=== PATIENT | male | born 1940 | race Hispanic/Latino ===

== ENCOUNTER 2017-02-27 07:39 | Day surgery (SDC) | payer MEDICARE, BC ==
[2017-02-27] MEDS ORDERED: Lidocaine 2% Jelly (Uro-Jet) ONE (10:05)
[2017-02-27] MEDS ORDERED: Iohexol 240 (50 ml) ONE (10:05)
[2017-02-27] MEDS ORDERED: Propofol 10 mg/ml Inj (20 ML) ONE (10:45)
[2017-02-27] MEDS ORDERED: cefTRIAXone (Rocephin) 1 gm Inj ONE (10:46)
[2017-02-27] MEDS ORDERED: Midazolam 2 MG/2 ML VIAL ONE (10:46)
[2017-02-27] MEDS ORDERED: Lactated Ringer's 1,000 ML IV SCH (11:30)
[2017-02-27 12:31] VITALS: RESP 18; TEMP 97.4
[2017-02-27 12:34] VITALS: BMI 24.4
[2017-02-27 13:20] VITALS: BP 155/69; PULSE 64; O2SAT 95
--- NOTE | 2017-02-27 13:33 | OP ---
PROCEDURE DATE: 02/27/2017 PREOPERATIVE DIAGNOSES: Bladder cancer history, hematuria. POSTOPERATIVE DIAGNOSIS: Bladder cancer. PROCEDURES: A cystoscopy, excision and fulguration of bladder tumor and bilateral retrograde pyelogr ams. ATTENDING SURGEON: Gab Agustin MD ANESTHESIA: General. SPECIMENS: Bladder tumor pieces were sent to pathology. DRAINS: There were none. COMPLICATIONS: There were none. OPERATIVE FINDINGS: After informed consent was obtained, the patient was taken to the operating room and placed on the operating table. Anesthesia was administered. The patient was then placed in the dorsal lithotomy position and prepped and draped in the usual sterile fashion. A 21-Hebrew cystosco pe was placed in the patient's urethra and advanced proximally under direct vision until the bladder was entered. A full survey inspection of bladder was then performed, which revealed a small papillar y bladder tumor on the posterior wall. There was some patchy erythema. There were multiple prior sc ars on the bladder from prior resection sites. Both ureteral orifices were visualized. The left was somewhat abnormal, as it had been previously resected, but it was open. The right appeared within n ormal limits. There was no tumor coming from either orifice or adjacent to either orifice. There wa s some papillary tumor located at the bladder neck region at the 4-5 o'clock position, extending into the prostatic urethra. 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 There wa s some nodular prostatic regrowth as well. At this point, a cold cup forceps was passed. The tumor noted at the bladder neck in the 4-5 o'clock position was then resected using the cold cup forceps. The pieces of tumor were sent to pathology as specimen. After the tumor was resected, a Bugbee elect rode was passed. The resection site was completely fulgurated along with any surrounding area of nor mal mucosa. The small papillary tumor on the posterior wall was also fulgurated. An inspection was made with both 30 and 70 degree lenses. At this point, there was no remaining papillary tumor noted. A cone tip catheter was then passed and retrograde pyelograms were performed. The cone tip cathete r first was guided into the left ureteral orifice and when inside the orifice, contrast was then inst illed into the system during real time fluoroscopy. There appeared to be no noted filling defects in the ureter or upper collecting system. The system was noted to drain promptly. There was no eviden ce of hydronephrosis. At this point, the cone tip catheter was guided into the right ureteral orific e and a right retrograde pyelogram was performed in a similar fashion. Right retrograde pyelogram al so appeared grossly normal with no evidence of filling defect and the system was noted to drain promp tly. Both systems were noted to drain promptly on fluoroscopy and the films were submitted to radiol ogy for interpretation. At this point, a final inspection was made. There was complete hemostasis f rom the resection points. There were no other papillary tumors noted. At this point, the bladder wa s drained, the cystoscope was removed. The patient tolerated the procedure well and was taken to the recovery room awake and in stable condition. The area of tumor noted was covering approximately 1 c m of area. Gab Agustin MD cc: [id number] TT: 02/27/2017 13:33:04 en
--- NOTE | 2017-02-27 15:12 | RAD ---
PROCEDURE: Bilateral retrograde pyelogram HISTORY: BILATERAL RETROGRADES COMPARISON: TECHNIQUE: Fluoroscopy was provided in the operating room. 2 minutes and 25 seconds fluoro time were utilized. 11 images were submitted FINDINGS: The study shows no obstruction or filling defect in the ureters or renal collecting systems IMPRESSION: As above
== END 2017-02-27 13:40 | disposition home or self-care (01) ==
LOC: SDS 07:39
PROVIDERS: ATTEND Urology
DX: C67.5 Malignant neoplasm of bladder neck (principal); R31.9 Hematuria, unspecified; I25.10 Atherosclerotic heart disease of native coronary artery without angina pectoris; Z95.1 Presence of aortocoronary bypass graft; K21.9 Gastro-esophageal reflux disease without esophagitis; E78.5 Hyperlipidemia, unspecified; Z95.5 Presence of coronary angioplasty implant and graft
CPT/HCPCS: 52005; 52214; 76000; 88305; C1758; J0696; J2250; J2704; J3010; J7120 ×2; Q9966

== ENCOUNTER 2018-01-21 19:40 | Emergency (ER) | payer MEDICARE, BC ==
[2018-01-21 19:42] VITALS: BMI 25.0
[2018-01-21 20:07] VITALS: RESP 18
--- NOTE | 2018-01-21 20:26 | ED PDOC ---
Arrival/HPI - General Chief Complaint: Male Genitourinary Time Seen by Provider: 01/21/18 19:45 Historian: Patient - History of Present Illness Narrative History of Present Illness (Text): 01/21/18 20:15 77 year old male, whose history includes CAD, coronary stent, and recent cystoscopy with bladder polyps removed, presents to the Emergency department complaining of dysuria and hematuria. Patient reports he can only urinate small amounts at a time. Patient states he has a history of hematuria in the past and has had urologic treatment. Patient denies any fever, chills, chest pain, shortness of breath, abdominal pain, nausea, vomiting, diarrhea, urinary symptoms, back pain, neck pain, headache, dizziness, or any other complaints. Time/Duration: 24 hours Symptom Onset: Gradual Symptom Course: Unchanged Context: Home Past Medical History - Provider Review Nursing Documentation Reviewed: Yes - Infectious Disease Hx of Infectious Diseases: None - Tetanus Immunization Tetanus Immunization: Unknown - Cardiac Hx Pacemaker: No - Neurological Hx Paralysis: No - HEENT Hx HEENT Disorder: (WEARS RX GLASSES) - Renal Hx Renal Disorder: (BLADDER TUMOR,BLADDER POLYPS-BLADDER SX TUR) - Hematological/Oncological Hx Blood Transfusions: No Hx Blood Transfusion Reaction: No - Integumentary Hx Dermatological Disorder: (LEG SCARRING FROM CABG) - Musculoskeletal/Rheumatological Hx Musculoskeletal Disorders: Yes - Gastrointestinal Hx Gastrointestinal Disorders: Yes Hx Gastroesophageal Reflux: Yes - Genitourinary/Gynecological Hx Genitourinary Disorders: Yes Hx Hematuria: Yes - Psychiatric Hx Emotional Abuse: No Hx Physical Abuse: No Hx Substance Use: No - Surgical History Hx Open Heart Surgery: Yes (5 CABG) - Anesthesia Hx Anesthesia Reactions: Yes (NAUSEA ) Hx Malignant Hyperthermia: No - Suicidal Assessment Feels Threatened In Home Enviroment: No Family/Social History - Physician Review Nursing Documentation Reviewed: Yes Family/Social History: Unknown Family HX Smoking Status: Former Smoker Hx Alcohol Use: Yes (WINE OCCASIONALLY) Hx Substance Use: No Allergies/Home Meds Allergies/Adverse Reactions: Allergies strawberry Allergy (Severe, Verified 08/15/16 12:26) ANAPHYLAXIS Home Medications: Home Meds Medication Instructions Recorded Confirmed Calcium Carbonate/Vitamin D3 1 tab PO QAM 04/30/12 02/27/17 [Nature's Blend Calcium Carbonate with D3 600 ] Aspirin [Ecotrin] 81 mg PO QAM 08/15/16 02/21/17 Ezetimibe [Zetia] 10 mg PO DIN 08/15/16 02/27/17 Multivit-Min/FA/Lycopen/Lutein 1 each PO QAM 08/15/16 02/27/17 [Centrum Silver Tablet] Omeprazole 40 mg PO QPM 08/15/16 02/27/17 Review of Systems - Physician Review All systems were reviewed & negative as marked: Yes - Review of Systems Constitutional: absent: Fevers, Night Sweats Respiratory: absent: SOB Cardiovascular: absent: Chest Pain Gastrointestinal: absent: Abdominal Pain, Diarrhea, Nausea, Vomiting Genitourinary Male: Dysuria, Hematuria, Urinary Output Changes (urinating small smounts at a time) Musculoskeletal: absent: Back Pain, Neck Pain Neurological: absent: Headache, Dizziness Physical Exam Vital Signs Reviewed: Yes Vital Signs Temp Pulse Resp BP Pulse Ox 01/21/18 19:58 97.8 F 99 H 18 153/88 H 97 Temperature: Afebrile Blood Pressure: Hypertensive Pulse: Tachycardic Respiratory Rate: Normal Appearance: Positive for: Well-Appearing, Non-Toxic, Comfortable Pain Distress: None Mental Status: Positive for: Alert and Oriented X 3 - Systems Exam Head: Present: Atraumatic, Normocephalic Mouth: Present: Moist Mucous Membranes Neck: Present: Normal Range of Motion Respiratory/Chest: Present: Clear to Auscultation, Good Air Exchange. No: Respiratory Distress, Accessory Muscle Use Cardiovascular: Present: Regular Rate and Rhythm, Normal S1, S2. No: Murmurs Abdomen: Present: Distention (mild suprapubic distention) Back: Present: Normal Inspection. No: CVA Tenderness Upper Extremity: Present: Normal Inspection. No: Cyanosis, Edema Lower Extremity: Present: Normal Inspection. No: Edema Neurological: Present: GCS=15, CN II-XII Intact, Speech Normal Skin: Present: Warm, Dry, Normal Color. No: Rashes Psychiatric: Present: Alert, Oriented x 3, Normal Insight, Normal Concentration Medical Decision Making ED Course and Treatment: 01/21/18 20:28 Impression: 77 year old male presents to the Emergency department complaining of dysuria and hematuria. Plan: -- Ash catheter insertion -- Reassess and disposition Progress Notes: 01/21/18 21:[address] Ramírez, urologist, who is aware and agrees with plan. Will irrigate ash, pt placed on prophylactic antibiotics. States pt can f/u outpt tomorrow in his office. Pt instructed to hold Aspirin and to follow up with Dr. Agustin tomorrow or return if symptoms persist/worsen or new concerning symptoms arise. - Medication Orders Current Medication Orders: Cephalexin Monohydrate (Keflex) 500 mg PO ONCE STA PRN Reason: Protocol Stop: 01/21/18 21:49 - Scribe Statement The provider has reviewed the documentation as recorded by the Angel Whitten Provider Scribe Attestation: All medical record entries made by the Scribe were at my direction and personally dictated by me. I have reviewed the chart and agree that the record accurately reflects my personal performance of the history, physical exam, medical decision making, and the department course for this patient. I have also personally directed, reviewed, and agree with the discharge instructions and disposition. Disposition/Present on Arrival - Present on Arrival Any Indicators Present on Arrival: No History of DVT/PE: No History of Uncontrolled Diabetes: No Urinary Catheter: No History of Decub. Ulcer: No History Surgical Site Infection Following: None - Disposition Have Diagnosis and Disposition been Completed?: Yes Diagnosis: Urinary retention, Hematuria Disposition: HOME/ ROUTINE Disposition Time: 21:59 Patient Plan: Discharge Condition: GOOD Discharge Instructions (ExitCare): Blood in the Urine (Hematuria) in Adults, Urinary Retention, Ash Catheter, Male Additional Instructions: Drink plenty of liquids/take meds as prescribed/stop aspirin until you see /follow up with Dr.Kerr thomas Prescriptions: Cephalexin [cephalexin] 500 mg PO BID #10 cap Referrals: Madina Cortes, [Primary Care Provider] - Follow up with primary Forms: [facility] ([place])
[2018-01-21 22:55] LABS: URINE BILIRUBIN SMALL (NEGATIVE); URINE BLOOD LARGE (NEGATIVE); URINE GLUCOSE (UA) 100 mg/dL (NEGATIVE); URINE LEUKOCYTE ESTERASE SMALL Leu/uL (NEGATIVE); URINE NITRATE POSITIVE (NEGATIVE); URINE PROTEIN >=300 mg/dL (<30 mg/dL)
[2018-01-21 22:58] LABS: URINE APPEARANCE BLOODY (CLEAR); URINE COLOR RED (YELLOW)
[2018-01-21 23:06] LABS: URINE BACTERIA MOD (NEG); URINE RBC TNTC /hpf (0-2); URINE WBC TNTC /hpf (0-6)
[2018-01-21 23:35] VITALS: BP 135/80; PULSE 76; TEMP 97.6; O2SAT 100
== END 2018-01-21 22:04 | disposition home or self-care (01) ==
LOC: ED 19:40
DX: R33.9 Retention of urine, unspecified (principal); R31.9 Hematuria, unspecified

== ENCOUNTER 2018-04-05 06:40 | Day surgery (SDC) | payer MEDICARE, BC ==
[2018-03-29 10:44] VITALS: BMI 25.1
[2018-04-05] MEDS ORDERED: Propofol 10 mg/ml Inj (20 ML) ONE (08:06)
[2018-04-05] MEDS ORDERED: Sodium Chloride 0.9% 1,000 ML IV SCH (09:00)
[2018-04-05 09:45] VITALS: BP 152/79; PULSE 61; RESP 16; TEMP 98.2; O2SAT 97
== END 2018-04-05 10:12 | disposition home or self-care (01) ==
LOC: ENDO 06:40
PROVIDERS: ATTEND Specialist
DX: Z12.11 Encounter for screening for malignant neoplasm of colon (principal); K57.30 Diverticulosis of large intestine without perforation or abscess without bleeding; K64.8 Other hemorrhoids; Z86.010 Personal history of colon polyps; I25.10 Atherosclerotic heart disease of native coronary artery without angina pectoris; I73.9 Peripheral vascular disease, unspecified; Z95.1 Presence of aortocoronary bypass graft
CPT/HCPCS: 45378; J2001; J2704; J7040

== ENCOUNTER 2018-09-24 06:05 | Day surgery (SDC) | payer MEDICARE, BC ==
[2018-03-29 10:44] VITALS: BMI 25.1
[2018-09-24] MEDS ORDERED: Propofol 10 mg/ml Inj (20 ML) ONE (07:47)
[2018-09-24] MEDS ORDERED: Lidocaine PF 2% (5 ml) Inj (For Cardiac Arrhy) ONE (07:48)
[2018-09-24] MEDS ORDERED: Succinylcholine 200 mg/10 ml Inj IV ONE (07:49)
[2018-09-24] MEDS ORDERED: cefTRIAXone (Rocephin) 1 gm Inj ONE (08:23)
[2018-09-24] MEDS ORDERED: Iohexol 240 (50 ml) ONE (08:23)
[2018-09-24] MEDS ORDERED: ePHEDrine 50 mg/ml Inj ONE (08:43)
[2018-09-24] MEDS ORDERED: Morphine 2 mg/ml ISec IVP PRN ×2 (09:12→09:15)
[2018-09-24] MEDS ORDERED: Lactated Ringer's 1,000 ML IV SCH (09:15)
[2018-09-24 10:11] VITALS: TEMP 97.9; O2SAT 98
[2018-09-24 10:51] VITALS: PULSE 59; RESP 18
[2018-09-24 11:34] VITALS: BP 135/89
--- NOTE | 2018-09-24 12:35 | RAD ---
Date of service: 09/24/2018 PROCEDURE: Retrograde pyelogram HISTORY: BLADDER CA COMPARISON: TECHNIQUE: 42.3 sec of fluoro time. Cumulative dose 9.74 mGy. 5 images submitted FINDINGS: There are no filling defects seen in the renal collecting systems or ureters bilaterally. IMPRESSION: As above
--- NOTE | 2018-09-25 01:26 | OP ---
PROCEDURE DATE: 09/24/2018 PREOPERATIVE DIAGNOSIS: Bladder cancer history. POSTOPERATIVE DIAGNOSES: 1. Bladder cancer history. 2. Filling defect in the left kidney. PROCEDURES: Cystoscopy, multiple bladder biopsies and fulguration, bilateral retrograde pyelograms, insertion of a Rosenbaum catheter. ATTENDING SURGEON: Gab Agustin MD ANESTHESIA: General. SPECIMENS: Bladder biopsies were sent separately to Pathology. DRAINS: A 18-Guyanese two-way Rosenbaum catheter. COMPLICATIONS: None. OPERATIVE FINDINGS: After informed consent was obtained, the patient was taken to the operating room, placed on the operating table. Anesthesia was administered. The patient was placed in a dorsal lithotomy position and prepped and draped in the usual sterile fashion. A 22-Guyanese cystoscope was placed in the patient's urethra and advanced proximally under direct vision. There was noted to be an opened stricture in the bulbar urethra. The scope was able to be passed beyond this point and passed into the bladder. Inspection of the prostatic urethra was within normal limits with no evidence of tumor. A full survey inspection of the bladder was then performed which revealed no obvious papillary tumors. There was multiple patches of erythematous mucosa. The patient is status post BCG treatments. The right ureteral orifice appeared within normal limits. The left ureteral orifice had been previously resected and was widely opened. There was some question of slight papillary growth just at the left ureteral orifice. There were a few patches of suspicious raised mucosa, one on the posterior wall and one on the left wall. At this point, a cold cup biopsy forceps was passed, and biopsies of these areas were taken and sent to Pathology separately as specimen. A Bugbee electrode was then passed, and the biopsy sites were then cauterized. At this point, a 5-Guyanese Rosenbaum catheter was introduced through the cystoscope and guided into the first left ureteral orifice. The area just inside the orifice had been cauterized from the biopsy. The catheter was able to be easily passed into the orifice, and the left retrograde pyelogram was performed. There was mild dilatation of the left ureter. There was a large filling defect seen in the left kidney. It appeared smooth and round. The patient was checked to make sure there was nothing externally on him, but it did appear to be in the kidney. Contrast was then noted to rapidly drain around and out of the kidney down the ureter and into the bladder with no other filling defects noted. At this point, the catheter was guided into the right ureteral orifice, and a right retrograde pyelogram was performed. The right retrograde pyelogram appeared within normal limits with no evidence of filling defects or obstruction noted. The films were submitted to Radiology for interpretation. The patient does have a history of stones. Possibly, this is policy services representative of a large left renal calculus. At this point, final inspection was made of the bladder. There were no untreated suspicious lesions. There was good hemostasis from the fulgurations. At this point, the procedure was completed. The bladder was then drained, and an 18-Guyanese two-way Rosenbaum catheter was passed and placed to straight bladder drainage. The patient tolerated the procedure well and was taken to the recovery room awake in stable condition. Gab Agustin MD
== END 2018-09-24 11:45 | disposition home or self-care (01) ==
LOC: SDS 06:05
PROVIDERS: ATTEND Urology
DX: C67.6 Malignant neoplasm of ureteric orifice (principal)
CPT/HCPCS: 52204; 74420; 88305; J0330; J0696; J2270; J2405; J2704; J2765; J3010; J7120 ×2; Q9966

== ENCOUNTER 2019-03-26 08:18 | Outpatient (CLI) | payer MEDICARE, BC | END 2019-03-26 08:19 | disposition home or self-care (01) | LOC: PAT 08:18 ==

== ENCOUNTER 2019-04-04 06:08 | Day surgery (SDC) | payer MEDICARE, BC ==
[2019-04-04 07:05] VITALS: BMI 25.1
[2019-04-04] MEDS ORDERED: Iohexol 240 (50 ml) ONE ×2 (07:35→09:45)
[2019-04-04] MEDS ORDERED: cefTRIAXone (Rocephin) 1 gm Inj ONE (07:35)
[2019-04-04] MEDS ORDERED: Propofol 10 mg/ml Inj (20 ML) ONE (08:01)
[2019-04-04] MEDS ORDERED: Sevoflurane - Inhalation Anesthetic Liq (250 ml) ONE (08:03)
[2019-04-04] MEDS ORDERED: HYDROmorphone 0.5 mg/0.5 ml ISec IVP PRN (09:59)
[2019-04-04] MEDS ORDERED: Lactated Ringer's 1,000 ML IV SCH (10:00)
[2019-04-04 10:10] VITALS: TEMP 97.6
[2019-04-04 10:55] VITALS: PULSE 61; RESP 20; O2SAT 98
[2019-04-04 11:33] VITALS: BP 160/88
--- NOTE | 2019-04-04 14:20 | RAD ---
Date of service: 04/04/2019 PROCEDURE: Retrograde pyelogram HISTORY: R/O OBSTRUCTION COMPARISON: 11/24/2018. Retrograde study. 10/08/2018 CT abdomen and pelvis. TECHNIQUE: Total fluoroscopic time (continuous mode) utilized during the procedure 59.4 seconds. FINDINGS: Total exam DLP: 13.99 (mGy). IMPRESSION: Submitted images from the current procedure: Greater than 10.
--- NOTE | 2019-04-04 21:19 | OP ---
PROCEDURE DATE: 04/04/2019 PREOPERATIVE DIAGNOSES: Bladder cancer history, urethral stricture. POSTOPERATIVE DIAGNOSES: Bladder cancer history, urethral stricture. PROCEDURES: Cystoscopy, urethral dilation, bladder biopsies, bilateral retrograde pyelogram. ATTENDING SURGEON: Gab Agustin MD ANESTHESIA: General. SPECIMENS: Bladder biopsies were sent to Pathology. DRAINS: There were none. COMPLICATIONS: There were none. OPERATIVE FINDINGS: After informed consent was obtained, the patient was taken to the operating room and placed on the operating room table. Anesthesia was administered. The patient was placed in the dorsal lithotomy position and prepped and draped in the usual sterile fashion. First, a 22-Mauritian cystoscope was passed into the patient's urethra and advanced proximally under direct vision. In the proximal penile urethra, there was noted to be a stricture which appeared open; however, the 22-Mauritian scope would not easily pass. A wire was obtained. It was passed through the stricture and advanced into the bladder. The scope was then removed, and a 17 scope was used. It was advanced proximally and was able to be passed through the stricture in order to dilate it and into the bladder. The 17 scope was then removed, and the 22 scope was then passed over the wire through the stricture to further dilate it and into the bladder. The wire was then removed. A full survey inspection of the bladder was then performed with both 30-degree and 70-degree lenses. There were no papillary tumors noted. There were multiple patches of erythema. There were multiple old resection sites and biopsy sites noted. Both ureteral orifices were visualized. The right appeared within normal limits. The left was opened and it had been in an area of previous tumor resection. At this point, a cold cup biopsy forceps was passed, and a biopsy was taken from the patch of raised erythema at the dome and a patch of raised erythema on the left lateral wall. There were sent separately as specimen to Pathology. The Bovie electrode was then passed. The biopsy sites were then cauterized along with another small area of raised erythema. At this point, the Bovie was removed and an open-ended ureteral catheter was obtained. It was passed through the cystoscope and guided into the left ureteral orifice. Contrast was then instilled into the system during real-time fluoroscopy for a retrograde pyelogram. The left ureter appeared slightly dilated and tortuous. There were noted to be some apparent filling defects in the upper ureter to renal pelvis. There was mild dilatation of the upper collecting system noted. At this point, the open-ended catheter was withdrawn and placed into the right ureteral orifice. The right retrograde pyelogram was performed. The right retrograde pyelogram appeared grossly within normal limits. The films were submitted to Radiology for interpretation. Both systems were noted to drain promptly with no evidence of obstruction, although the filling defects on the left appear suspicious. The patient will require further imaging. Prior retrograde pyelogram did not reveal this finding. At this point, a final inspection was made. There was complete hemostasis from the biopsy sites. There were no suspicious papillary tumors or other suspicious lesions. At this point, the bladder was drained. The cystoscope was removed. Exam of the urethra revealed moderate regrowth of the prostate, mostly the right lateral lobe but the channel did appear open. The stricture had been widely opened. The cystoscope was then removed. The procedure was complete. The patient was returned to the supine position, taken to the recovery room awake in stable condition. Gab Agustin MD
== END 2019-04-04 13:00 | disposition home or self-care (01) ==
LOC: SDS 06:08
PROVIDERS: ATTEND Urology
DX: N35.919 Unspecified urethral stricture, male, unspecified site (principal); Z85.51 Personal history of malignant neoplasm of bladder; I10 Essential (primary) hypertension; I25.10 Atherosclerotic heart disease of native coronary artery without angina pectoris; E78.00 Pure hypercholesterolemia, unspecified; Z95.5 Presence of coronary angioplasty implant and graft; E78.2 Mixed hyperlipidemia; R63.4 Abnormal weight loss
CPT/HCPCS: 52281; 74420; 88305; J0696; J1170; J2001; J2704; J3010; J7120; Q9966

== ENCOUNTER 2019-04-10 07:55 | Outpatient (CLI) | payer MEDICARE, BC | END 2019-04-10 07:56 | disposition home or self-care (01) | LOC: RAD 07:55 | DX: C67.8 Malignant neoplasm of overlapping sites of bladder (principal) ==